=== PATIENT | female | born 1990 | race Caucasian/White ===

== ENCOUNTER 2018-11-01 23:58 | Emergency (ER) | payer SELFPAY ==
--- NOTE | 2018-11-02 00:18 | ED Physician Documentation ---
Upper Respiratory Symptoms - HISTORIAN Historian: patient - HPI Stated Complaint: Shortness of breath Chief Complaint: Cough/ Upper Respiratory Additional Information: Patient is a 28-year-old female who presents to the ER with c/o cough & congestion- that started around noon this afternoon. She appears to be in no acute distress. LCTA- she states that she was in the ICU 2 weeks ago for alcohol withdraw. She had asthma as a child. She smokes tobacco 6-10 cigarettes per day. She denies any fever or chills. No nausea or vomiting. Onset: hours (started at noon.) Duration: other (gradual) Context: denies: recent foreign travel, multiple patients, same sx Severity: mild Associated Symptoms: denies: fever, chills, runny nose, productive cough - ROS CONST/EYES: denies: weakness CVS/RESP: shortness of breath LYMPH: denies: leg swelling, rash GI/: none. denies: vomiting, nausea NEURO/PSYCH: denies: fainting, dizziness MS/SKIN: denies: joint pain, muscle aches - PAST HX Lung Disease: asthma (as a child) PE Risk Factors: none Surgeries/Procedures: none Immunizations: UTD Allergies/Adverse Reactions: Allergies Allergy/AdvReac Type Severity Reaction Status Date / Time No Known Drug Allergies Allergy Verified 11/02/18 00:15 Home Medications: Ambulatory Orders Medication Instructions Recorded Azithromycin [Zithromax] 250 mg PO DAILY #4 tablet 11/02/18 Prednisone 20 mg PO DAILY #10 tablet 11/02/18 - SOCIAL HX Smoking History: cigarettes Alcohol Use: heavy Drug Use: none - FAMILY HX Family History: none - VITAL SIGNS Vital Signs: Vital Signs Temp Pulse Resp BP Pulse Ox 98.8 F 101 H 18 120/79 100 11/02/18 00:09 11/02/18 00:51 11/02/18 00:51 11/02/18 00:41 11/02/18 00:51 Progress - Progress Progress: 12:40 PATIENT BREATHING BETTER AFTER HFN TREATMENT ED Results Lab/Radiology - Radiology Radiology Impressions: Pa and lateral chest Clinical history :short of breath Technique pa and lateral upright Findings: The lung chang are clear. The lung chang are hyperinflated. I see no hilar or mediastinal mass. There is no pleural effusion or lesion of the bony thorax. Impression: No acute pulmonary disease Lung field hyperinflation Electronically signed on Nov 02, 2018 12:36:06 AM CDT by: Joel Navas - Orders Orders: ED Orders Category Date Time Status CHEST 2VIEW [RAD] Stat Exams 11/02/18 Completed Albuterol Sulfate [Ventolin Hfa] Med 11/02/18 00:38 Discontinued 2 puff IH Q4-6 PRN Albuterol Sulfate [Ventolin Hfa] Med 11/02/18 00:44 Discontinued 60 puff IH .STK-MED ONE Azithromycin [Zithromax] Med 11/02/18 00:38 Discontinued 500 mg PO NOW ONE Ipratropium/Albuterol Sulfate [Duoneb] Med 11/02/18 00:06 Discontinued 3 ml NEB .STK-MED ONE Ipratropium/Albuterol Sulfate [Duoneb] Med 11/02/18 00:21 Discontinued 3 ml NEB NOW ONE predniSONE [Deltasone] Med 11/02/18 00:38 Discontinued 20 mg PO NOW ONE Upper Respiratory Symptoms - EXAM General Appearance: no acute distress, alert EENT: eyes nml inspection, nml ENT inspection, PERRL Neck: normal inspection, supple Respiratory: no resp. distress, breath sounds nml, speaks full sentences Abdomen: non-tender, nml bowel sounds CVS: reg rate & rhythm, heart sounds normal, equal pulses Skin: color nml, no rash, warm,dry Extremities: non-tender, normal range of motion Neuro/Psych: oriented x3, neuro intact, mood/affect nml Discharge Clincal Impression: URI with cough and congestion Prescriptions: Azithromycin [Zithromax] 250 mg PO DAILY #4 tablet Prednisone 20 mg PO DAILY #10 tablet Referrals: Primary Doctor,No [REFERRING] - 2 Days Additional Instructions: Take Zithromax 250 mg daily x 4 days Prednisone 20 mg daily x 4 days Albuterol inhaler- inhale 2 puffs every 4-6 hours as needed for shortness of breath/wheezing STOP SMOKING Follow up with PCP this week Condition: Good Disposition: 01 HOME, SELF-CARE Decision to Admit: NO Decision Time: 00:50
[2018-11-02] MEDS: IPRATROPIUM/ALBUTEROL SULFATE 3 ML AMPUL.NEB NEB ONE ×2 (00:36→00:50)
[2018-11-02 00:41] VITALS: BP 120/79
[2018-11-02] MEDS ORDERED: ALBUTEROL 90MCG/PUFF INHALER IH ONE (00:44)
[2018-11-02] MEDS: predniSONE 20 MG TABLET PO ONE (00:50)
[2018-11-02] MEDS: AZITHROMYCIN 250 MG TABLET PO ONE (00:50)
[2018-11-02] MEDS: ALBUTEROL 90MCG/PUFF INHALER IH PRN (00:50)
--- NOTE | 2018-11-02 06:06 | Diagnostic Imaging Report ---
[facility] [address] [facility] [address] [id number] Report Submission Date: Nov 02, 2018 12:36:06 AM CDT Patient Study Name: MAYA PAREKH Date: Nov 02, 2018 12:25:31 AM CDT Modality Type: DX Gender: F Description: CHEST 2VIEW : 86 Institution: [facility] Physician: [facility] Pa and lateral chest Clinical history :short of breath Technique pa and lateral upright Findings: The lung chang are clear. The lung chang are hyperinflated. I see no hilar or mediastinal mass. There is no pleural effusion or lesion of the bony thorax. Impression: No acute pulmonary disease Lung field hyperinflation Electronically signed on Nov 02, 2018 12:36:06 AM CDT by: Joel HERNADEZ
== END 2018-11-02 00:53 | disposition home or self-care (01) ==
LOC: ED 23:58
DX: J06.9 Acute upper respiratory infection, unspecified (principal); R05 Cough; R09.81 Nasal congestion; Z72.0 Tobacco use
CPT/HCPCS: 71046; 94640; 99283